=== PATIENT | female | born 1955 | race Two or more races ===

== ENCOUNTER 2017-12-11 20:37 | Inpatient (IN) | payer SELFPAY ==
[~2017-12-11] VITALS: Ht 157.5 cm; Wt 48.0 kg
[2017-12-11 03:40] VITALS: BP 83/45
[2017-12-11] MEDS ORDERED: PIPERACILLIN/TAZ 3.375G PREMIX 50 ML IV ONE (21:00)
[2017-12-11] MEDS ORDERED: SODIUM CHLORIDE 0.9% 1000ML BAG (SEPSIS BOLUS) IV ONE (21:00)
[2017-12-11] MEDS ORDERED: VANCOMYCIN 1 G PREMIX 200 ML IV ONE (21:00)
[2017-12-11 21:09] LABS: BG BASE EXCESS 3.5 mmol/L (-2.0-2.0); BG CARBOXYHEMOGLOBIN 0.8 % (0.5-1.5); BG FRACTION INSPIRED OXYGEN 100; BG HCO3 ACT 28.6 mmol/L (22.0-26.0); BG METHEMOGLOBIN 0.2 % (0.0-1.5); BG OXYGEN SATURATION 92.9 % (92.0-98.5); BG PCO2 46.1 mmHg (35.0-45.0); BG PH 7.411 (7.350-7.450); BG PO2 67.7 mmHg (75.0-100.0); BG SAMPLE SITE RIGHT BRACHIAL; BG VENT MODE MASK - NRB
[2017-12-11 21:51] LABS: CHLORIDE 93 mEq/L (98-107)
[2017-12-11 21:57] LABS: INR 1.9; PARTIAL THROMBOPLASTIN TIME 35.3 sec (23.4-31.0); PROTHROMBIN TIME 18.9 sec (9.1-11.1)
[2017-12-11] MEDS ORDERED: DEXTROSE 50% WATER 50ML SYRINGE IV ONE ×2 (22:08→22:15)
[2017-12-11 23:11] LABS: CLARITY URINE CLOUDY (CLEAR); COLOR URINE YELLOW (YELLOW); KETONES URINE NEGATIVE (NEGATIVE); LEUKOCYTE ESTERASE URINE TRACE (NEGATIVE); NITRITE URINE NEGATIVE (NEGATIVE); OCCULT BLOOD URINE NEGATIVE (NEGATIVE); PH URINE 5.5 (4.5-8.0); PROTEIN URINE NEGATIVE (NEGATIVE); SPECIFIC GRAVITY URINE 1.013 (1.005-1.030)
[2017-12-11] MEDS ORDERED: IOHEXOL-350 100 ML BOTTLE ONE (23:34)
[2017-12-12] VITALS (20 sets, daily range): BP systolic 56–147; BP diastolic 20–111
[2017-12-12 01:03] LABS: HEMOGLOBIN. 9.2 g/dL (12.0-16.0); MEAN CORPUSCULAR HEMOGLOBIN 31.3 pg (28.0-32.0); MEAN CORPUSCULAR VOLUME 92.2 fL (81.0-99.0); MEAN PLATELET VOLUME 8.8 fl (7.4-10.4); RED BLOOD CELL COUNT 2.93 mill/uL (4.2-5.4); RED CELL DISTRIBUTION WIDTH 14.7 % (11.6-14.6)
[2017-12-12 01:13] LABS: PLATELET 29 x1000/uL (130-400)
[2017-12-12] MEDS ORDERED: ONDANSETRON HCL 4MG/2ML VIAL IV STA (01:14)
[2017-12-12] MEDS ORDERED: MORPHINE SULFATE 4 MG/ML CPJ (NOT FOR IM USE) IV STA (01:14)
[2017-12-12 01:52] LABS: PLATELET ESTIMATE MARKEDLY DECREASED
[2017-12-12] MEDS ORDERED: DEXTROSE 50% WATER 50ML SYRINGE IV ONE (03:00)
[2017-12-12] MEDS ORDERED: PHENYLEPHRINE 20 MG in DEXT 5% WATER 248 ML IV PRN (09:45)
[2017-12-12 10:05] LABS: BG BASE EXCESS -10.1 mmol/L (-2.0-2.0); BG CARBOXYHEMOGLOBIN 0.3 % (0.5-1.5); BG DEOXYHEMOGLOBIN 0.9 % (0.0-5.0); BG FRACTION INSPIRED OXYGEN 100; BG HCO3 ACT 17.4 mmol/L (22.0-26.0); BG METHEMOGLOBIN 0.8 % (0.0-1.5); BG OXYGEN SATURATION 99.1 % (92.0-98.5); BG PCO2 45.9 mmHg (35.0-45.0); BG PH 7.197 (7.350-7.450); BG PO2 316.8 mmHg (75.0-100.0); BG SAMPLE SITE RIGHT FEMORAL; BG TIDAL VOLUME(mL) 500 mL; BG VENT MODE VENT - A/C; BG VENT RATE 14 set
[2017-12-12] MEDS ORDERED: LIDOCAINE HCL 1% 20ML VIAL (Pyxis) INJ ONE (10:30)
[2017-12-12] MEDS ORDERED: LORAZEPAM 2MG/ML CPJ IV PRN (10:30)
[2017-12-12] MEDS: NOREPINEPHRINE 8 MG in DEXT 5% WATER 242 ML IV PRN ×2 (11:05→14:37)
[2017-12-12] MEDS: PHENYLEPHRINE 40 MG in DEXT 5% WATER 246 ML IV PRN ×2 (11:34→15:57)
[2017-12-12] MEDS ORDERED: SODIUM BICARBONATE 8.4% 1 MEQ/ML 50ML SYR IV NR (12:15)
[2017-12-12] MEDS: VASOPRESSIN 10 UNIT in SODIUM CHLORIDE 0.9% 99.5 ML IV PRN ×2 (12:19→15:58)
[2017-12-12 12:48] LABS: BG BASE EXCESS -12.7 mmol/L (-2.0-2.0); BG CARBOXYHEMOGLOBIN 0.3 % (0.5-1.5); BG DEOXYHEMOGLOBIN 0.5 % (0.0-5.0); BG FRACTION INSPIRED OXYGEN 100; BG HCO3 ACT 16.1 mmol/L (22.0-26.0); BG METHEMOGLOBIN 0.6 % (0.0-1.5); BG OXYGEN SATURATION 99.5 % (92.0-98.5); BG OXYHEMOGLOBIN 98.6 % (94.0-97.0); BG PCO2 50.8 mmHg (35.0-45.0); BG PH 7.119 (7.350-7.450); BG PO2 413.9 mmHg (75.0-100.0); BG SAMPLE SITE RIGHT FEMORAL; BG TIDAL VOLUME(mL) 500 mL; BG TOTAL HEMOGLOBIN 9.2 g/dL (12.0-18.0); BG VENT MODE VENT - A/C; BG VENT RATE 20 set
[2017-12-12] MEDS ORDERED: EPINEPHRINE 0.1MG/ML (1:10,000) 10ML SYR ONE ×2 (14:06→14:19)
[2017-12-12] MEDS ORDERED: CALCIUM CHLORIDE 1GM/10ML SYR IV ONE (14:19)
[2017-12-12] MEDS ORDERED: MAGNESIUM SULFATE 4G IN WATER 100ML PREMIX IV ONE (14:19)
[2017-12-12] MEDS ORDERED: SODIUM BICARBONATE 7.5% 0.9 MEQ/ML 50ML SYR IV ONE (14:19)
[2017-12-12] MEDS ORDERED: EPINEPHRINE 1 MG in SODIUM CHLORIDE 0.9% 249 ML IV PRN (18:45)
[2017-12-12] MEDS ORDERED: EPINEPHRINE 1 MG in SODIUM CHLORIDE 0.9% 250 ML IV PRN (18:45)
== END 2017-12-12 19:09 | disposition expired | DRG 720 ==
LOC: ER 20:37 → 7WST 12-12 01:11 → EDBEDREQTM 12-12 01:14 → EDBEDREQ 12-12 01:14 → ENRESERV 12-12 02:20 → MICUSO 12-12 09:09
PROVIDERS: ADMIT Hospitalist; ATTEND Hospitalist
PROC: 02HV33Z Insertion of Infusion Device into Superior Vena Cava, Percutaneous Approach (ICD-10-PCS; principal; 2017-12-12)
PROC: B548ZZA Ultrasonography of Superior Vena Cava, Guidance (ICD-10-PCS; 2017-12-12)
DX: A41.9 Sepsis, unspecified organism (principal); J96.00 Acute respiratory failure, unspecified whether with hypoxia or hypercapnia; I46.9 Cardiac arrest, cause unspecified; C79.31 Secondary malignant neoplasm of brain; C78.01 Secondary malignant neoplasm of right lung; D69.6 Thrombocytopenia, unspecified; C78.02 Secondary malignant neoplasm of left lung; C10.9 Malignant neoplasm of oropharynx, unspecified; D64.9 Anemia, unspecified; Z66 Do not resuscitate; R65.20 Severe sepsis without septic shock; E16.2 Hypoglycemia, unspecified; Z85.818 Personal history of malignant neoplasm of other sites of lip, oral cavity, and pharynx
CPT/HCPCS: 36415; 36569; 36600; 51702; 70450; 71045; 71275; 76937; 80053; 81003; 82375; 82805; 82962; 83605; 83880; 84484; 85025; 85379; 85610; 85730; 86850; 86900; 87040; 87077; 87086; 87186; 92950; 93005; 94002; 96374; 96375; 96376; 99291; C1725; J2370; J2543; J3370; J3475; J3490; J7030; J7050; J7060; Q9967